=== PATIENT | female | born 1995 | race Caucasian/White ===

== ENCOUNTER 2016-11-18 12:45 | Emergency (ER) | payer OTHER ==
[~2016-11-18] VITALS: Ht 177.8 cm; Wt 91.0 kg
[2016-11-18 12:49] VITALS: Ht 177.8 cm; Wt 91.0 kg
[2016-11-18] MEDS ORDERED: BCPILLS PO (13:26)
--- NOTE | 2016-11-18 13:34 | DIAGNOSTIC IMAGING REPORT ---
CHEST ONE VIEW PORTABLE CLINICAL HISTORY: Atypical chest pain COMPARISON STUDY: No previous studies for comparison. FINDINGS: The cardiac and mediastinal contours are normal. There is no evidence of focal pulmonary consolidation. There is no evidence of failure. No pleural effusions are visualized.[ IMPRESSION: No active disease in the chest. Electronically signed by: Shaq Mahoney M.D. 11/18/2016 1:33 PM Dictated Date/Time: 11/18/2016 1:33 PM
[2016-11-18 14:05] VITALS: O2SAT 98
[2016-11-18 14:12] LABS: BASO % 0.5 %; BASO ABS # 0.03 K/uL (0-0.2); COMPLETE YES; EOS % 1.4 %; HEMATOCRIT 41.6 % (37-47); LYMPH % 28.1 %; LYMPH ABS # 1.65 K/uL (1.2-3.4); MEAN CELL VOLUME 85.4 fL (80-100); MEAN CORPUSCULAR HEMOGLOBIN 27.3 pg (25-34); MEAN PLATELET VOLUME 9.4 fL (7.4-10.4); PLATELET COUNT 311 K/uL (130-400); RED BLOOD COUNT 4.87 M/uL (4.2-5.4); WHITE BLOOD COUNT 5.88 K/uL (4.8-10.8)
[2016-11-18 14:30] LABS: ALT/SGPT 28 U/L (12-78); AST/SGOT 23 U/L (15-37); BLOOD UREA NITROGEN 11 mg/dl (7-18); CALCIUM 9.2 mg/dl (8.5-10.1); CARBON DIOXIDE 25 mmol/L (21-32); CHLORIDE 108 mmol/L (98-107); CREATININE 0.93 mg/dl (0.60-1.20); GLUCOSE 79 mg/dl (70-99); POTASSIUM 3.5 mmol/L (3.5-5.1); SODIUM 140 mmol/L (136-145)
[2016-11-18 14:35] LABS: ALKALINE PHOSPHATASE 66 U/L (45-117)
--- NOTE | 2016-11-18 14:35 | EMERGENCY ROOM VISIT NOTE ---
History First contact with patient: 13:15 Chief Complaint: CHEST PAIN Stated Complaint: CHEST PAIN, SENT BY [facility] Triage Summary: Pt had chest pain for a couple of days. It goes up into her shoulder and neck. She doesn't feel like a heartattack. Went to [facility]. EKG performed and sent to ER for more testing. History of Present Illness The patient is a 21 year old female who presents to the Emergency Room with complaints of left-sided chest pain that started last night. It is pleuritic interpreted she notes some radiation to the left shoulder and neck area. She was seen at the local urgent care and sent to the Emergency Room for further evaluation. The patient is currently taking oral contraceptives. The patient also notes a recent 8 hour plane ride. She denies any leg pain or swelling. She also has had a URI last week. She feels like that has cleared up. Her pain feels better sitting up. She denies any change with exercise although deep breathing makes it feel worse. She also feels some discomfort with palpation of the area. Prior to the onset of this she was doing some circuit training. Pt denies LOC, headache, fevers, chills, diaphoresis, visual changes , neck pain, breathing difficulties, nausea, vomiting, abdominal pain, back pain , melena, hematochezia, urinary symptoms, numbness, weakness, lymphadenopathy, rash, or other complaints. Review of Systems See HPI for pertinent positives and negatives. A total of ten systems were reviewed and were otherwise negative. Social History Smoking Status: Never Smoker Current/Historical Medications Scheduled Control Pills ( Control Pills), 1 TAB PO DAILY Physical Exam Vital Signs Date Time Temp Pulse Resp B/P (MAP) Pulse Ox O2 Delivery O2 Flow Rate FiO2 11/18/16 14:05 98 Room Air 11/18/16 14:04 98 Room Air 11/18/16 13:38 88 11/18/16 13:09 98 Room Air 11/18/16 12:49 36.9 72 20 139/92 100 Room Air Physical Exam GENERAL: Awake, alert, well-appearing, in no distress HENT: Normocephalic, atraumatic. Oropharynx unremarkable. EYES: Normal conjunctiva. Sclera non-icteric. NECK: Supple. No nuchal rigidity. FROM. No JVD. RESPIRATORY: Clear to auscultation. CARDIAC: Regular rate, normal rhythm. Extremities warm and well perfused. Pulses equal. ABDOMEN: Soft, non-distended. No tenderness to palpation. No rebound or guarding. No masses. RECTAL: Deferred. MUSCULOSKELETAL: Chest examination reveals left upper anterior tenderness. The back is symmetrical on inspection without obvious abnormality. There is no CVA tenderness to palpation. No joint edema. LOWER EXTREMITIES: Calves are equal size bilaterally and non-tender. No edema. No discoloration. NEURO: Normal sensorium. No sensory or motor deficits noted. SKIN: No rash or jaundice noted. Medical Decision & Procedures ER Provider Diagnostic Interpretation: Chest x-ray. Findings: A chest x-ray was performed and revealed no pneumothorax , effusion, infiltrate, pulmonary edema, free air under the diaphragm, or wide mediastinum. Laboratory Results 11/18/16 13:50 Red Blood Count 4.87, Mean Corpuscular Volume 85.4, Mean Corpuscular Hemoglobin 27.3, Mean Corpuscular Hemoglobin Concent 32.0, Mean Platelet Volume 9.4, Neutrophils (%) (Auto) 61.0, Lymphocytes (%) (Auto) 28.1, Monocytes (%) (Auto) 9.0, Eosinophils (%) (Auto) 1.4, Basophils (%) (Auto) 0.5, Neutrophils # (Auto) 3.59, Lymphocytes # (Auto) 1.65, Monocytes # (Auto) 0.53, Eosinophils # (Auto) 0.08, Basophils # (Auto) 0.03 11/18/16 13:50 Test 11/18/16 13:50 White Blood Count 5.88 K/uL (4.8-10.8) Red Blood Count 4.87 M/uL (4.2-5.4) Hemoglobin 13.3 g/dL (12.0-16.0) Hematocrit 41.6 % (37-47) Mean Corpuscular Volume 85.4 fL (80-100) Mean Corpuscular Hemoglobin 27.3 pg (25-34) Mean Corpuscular Hemoglobin Concent 32.0 g/dl (32-36) Platelet Count 311 K/uL (130-400) Mean Platelet Volume 9.4 fL (7.4-10.4) Neutrophils (%) (Auto) 61.0 % Lymphocytes (%) (Auto) 28.1 % Monocytes (%) (Auto) 9.0 % Eosinophils (%) (Auto) 1.4 % Basophils (%) (Auto) 0.5 % Neutrophils # (Auto) 3.59 K/uL (1.4-6.5) Lymphocytes # (Auto) 1.65 K/uL (1.2-3.4) Monocytes # (Auto) 0.53 K/uL (0.11-0.59) Eosinophils # (Auto) 0.08 K/uL (0-0.5) Basophils # (Auto) 0.03 K/uL (0-0.2) RDW Standard Deviation 49.2 fL (36.4-46.3) RDW Coefficient of Variation 15.9 % (11.5-14.5) Immature Granulocyte % (Auto) 0.0 % Immature Granulocyte # (Auto) 0.00 K/uL (0.00-0.02) Anion Gap 7.0 mmol/L (3-11) Est Creatinine Clear Calc Drug Dose 117.1 ml/min Estimated GFR () 101.8 Estimated GFR (Non- 87.9 BUN/Creatinine Ratio 12.0 (10-20) Calcium Level 9.2 mg/dl (8.5-10.1) Total Bilirubin 0.3 mg/dl (0.2-1) Direct Bilirubin 0.1 mg/dl (0-0.2) Aspartate Amino Transf (AST/SGOT) 23 U/L (15-37) Alanine Aminotransferase (ALT/SGPT) 28 U/L (12-78) Alkaline Phosphatase 66 U/L (45-117) Total Creatine Kinase 107 U/L (26-192) Creatine Kinase MB 1.1 ng/ml (0.5-3.6) Creatine Kinase MB Ratio 1.0 (0-3.0) Troponin I < 0.015 ng/ml (0-0.045) Total Protein 8.0 gm/dl (6.4-8.2) Albumin 4.0 gm/dl (3.4-5.0) Lipase 81 U/L (73-393) Human Chorionic Gonadotropin, Qual NEG (NEG) Medications Administered Medications (Trade) Dose Ordered Sig/Ashli Route Start Time Stop Time Status Last Admin Dose Admin Ibuprofen (Motrin Tab) 600 mg NOW STAT PO 11/18/16 14:54 11/18/16 14:55 DC 11/18/16 15:03 600 MG ECG Indication: chest pain Rate (beats per minute): 91 Rhythm: normal sinus Findings: no acute ischemic change, no ectopy, other (No pericarditis) Medical Decision Triage Nursing notes reviewed. The patient's presentation and history were concerning for chest pain. Etiologies such as pleurisy, costochondritis, pericarditis, cardiac ischemia, aortic dissection, pulmonary embolism, pneumonia, pneumothorax, musculoskeletal , infections, gastrointestinal, as well as others were entertained. The patient was evaluated. Clinically she was doing well. She did have some left upper chest wall tenderness. ECG was nonischemic. No pericarditis noted. Chest x-ray was performed and was negative. The patient's d-dimer was negative, 236. Her CBC, chemistry panel, LFTs, lipase and troponin were unremarkable. A single troponin was performed given her pain has been present for over 16 hours. Given the pleuritic nature and negative chest x-ray coupled with a negative d-dimer pneumonia and PE are unlikely however pleurisy is a possibility. Costochondritis is also possible she does have a tender chest wall. I discussed conservative management with her. She will use ibuprofen and warm compresses. She was given 600 mg of Motrin here. She will refrain from any heavy activity. She'll follow-up closely as an outpatient. If she worsens in any way she will be back. I gave my usual and customary discussion regarding this issue. By the evaluation outlined above other emergent etiologies such as those listed in the differential, as well as others, were deemed relatively unlikely. The patient was educated about the findings as listed above. All questions were answered and the patient was pleased with the treatment. Return instructions were outlined and the patient was discharged in stable condition. The patient was referred to [facility] for follow-up for a recheck of the current condition. Impression Primary Impression: Left sided chest pain Departure Information Dispostion Home / Self-Care Referrals No Doctor, Assigned (PCP) Patient Instructions My [facility] Additional Instructions CHEST PAIN INSTRUCTIONS: Ibuprofen(Motrin, Advil) may be used for fever or pain. Use 600mg every six hours as needed. Take with food. Avoid using more than 2400mg in a 24 hour period. Do not use 2400mg per day for more than three consecutive days without physician direction. Prolonged inappropriate use can lead to stomach upset or ulcers. (AND/OR) Acetaminophen(Tylenol) may be used for fever or pain. Use 1000mg every six hours as needed. Avoid using more than 4000mg in a 24 hour period. Rest and drink plenty of fluids as tolerated. Continue current medications. Avoid strenuous activities and anything that worsens your pain. Resume normal activities once your symptoms resolve. Return to the ER immediately for worsening or persistent chest pain, abdominal pain, vomiting, fevers, chest pains, difficulty breathing, worsening of your condition, or as needed. Follow up with [facility] in 2-3 days for a recheck of your current condition.
[2016-11-18 14:42] LABS: PREG INTERNAL NEGATIVE QC NEG CLEAR BACKGROUND; PREG INTERNAL POSITIVE QC POS CONTROL LINE
[2016-11-18] MEDS ORDERED: IBUPROFEN 600 MG TAB PO STA (14:54)
[2016-11-18 15:21] VITALS: TEMP 36.9
[2016-11-18 15:22] VITALS: BP 128/87; PULSE 70; O2SAT 100
== END 2016-11-18 15:23 | disposition home or self-care (01) ==
LOC: C.EDB 12:47
DX: R07.9 Chest pain, unspecified (principal); Z79.3 Long term (current) use of hormonal contraceptives

== ENCOUNTER 2017-05-07 16:20 | Emergency (ER) | payer OTHER ==
[~2017-05-07] VITALS: Ht 175.3 cm; Wt 88.4 kg
[~2017-05-07 16:20] MED LIST: BCPILLS PO
[2017-05-07 16:23] VITALS: Ht 175.3 cm; Wt 88.4 kg
[2017-05-07] MEDS ORDERED: CEFTRIAXONE SOD INJ 1 GM ADDVIAL IV STA (16:50)
[2017-05-07] MEDS ORDERED: ONDANSETRON INJ 2 MG/ML 2 ML VIAL IV STA (16:50)
[2017-05-07] MEDS ORDERED: ACETAMINOPHEN 500 MG TAB PO STA (16:50)
[2017-05-07] MEDS ORDERED: SODIUM CHLORIDE 0.9% 1000ML 1,000 ML IV STA (16:50)
[2017-05-07] MEDS ORDERED: KETOROLAC TROMETHAMINE 30 MG/ML VIAL IV STA (16:50)
--- NOTE | 2017-05-07 16:58 | EMERGENCY ROOM VISIT NOTE ---
History Report prepared by Denia: Mary Delcid Under the Supervision of: Dr. Reese Hope M.D. First contact with patient: 16:28 Chief Complaint: FEVER Stated Complaint: SHAKES,HIGH FEVER,ABD PAIN History of Present Illness The patient is a 21 year old female who presents to the Emergency Room with complaints of worsening generalized illness beginning on Tuesday, five days ago. The patient reports fever, chills, cough, congestion, headache, abdominal pain, chest pain with a deep breath, shortness of breath, and flank pain. She notes her highest temperature was 104 degrees Fahrenheit. She notes one episode of vomiting occurring yesterday. The patient reports she started to have UTI symptoms of odorous urine and pain with urination two weeks ago. She states she did not see anyone for her UTI symptoms. The patient went to [facility] this past week and had UTI symptoms the entire time she was there. She also reports she had her other generalized illness symptoms while she was in the [facility]. The patient got back from the [facility] last night. The patient went to [facility] this morning and tested positive for a UTI. [facility] referred the patient to the ED for a possible kidney infection. She was given one dose of Rocephin IM while at [facility]. The patient took Tylenol at 10am and ibuprofen at 12pm today. The patient has a history of UTIs. Source of History: patient Onset: 5 days ago Position: other (generalized) Quality: other (illness) Timing: worsening Associated Symptoms: + fevers, + chills, + cough, + chest pain, + SOB, + vomiting, + abdominal pain, + back pain, + urinary symptoms Review of Systems See HPI for pertinent positives & negatives. A total of 10 systems reviewed and were otherwise negative. Past Medical & Surgical Medical Problems: (1) STI (sexually transmitted infection) (2) UTI (urinary tract infection) Family History Patient reports no known family medical history. Social History Smoking Status: Never Smoker Marital Status: single Housing Status: lives with roommate Occupation Status: [employer] student Current/Historical Medications Scheduled Biotin (Biotin), 1 CAP PO DAILY Cefdinir (Omnicef), 300 MG PO Q12H Etonogestrel (Nexplanon), 68 MG INTRAD UD Multivitamin (Multivitamin), 1 TAB PO DAILY Scheduled PRN Acetaminophen (Tylenol), 1,000 MG PO Q6H PRN for Pain or Fever Ibuprofen (Advil), 400-600 MG PO Q6H PRN for Pain or Fever Allergies Coded Allergies: No Known Allergies (Unverified , 11/18/16) Physical Exam Vital Signs Date Time Temp Pulse Resp B/P (MAP) Pulse Ox O2 Delivery O2 Flow Rate FiO2 05/07/17 19:01 107 22 105/60 98 Room Air 05/07/17 18:28 106 20 105/60 98 Room Air 05/07/17 17:07 129 05/07/17 16:23 38.7 143 24 129/80 96 Room Air Physical Exam GENERAL: Patient is in no acute distress. HEENT: Face flushing noted. No acute trauma, normocephalic atraumatic, mucous membranes moist, no nasal congestion, no scleral icterus. NECK: No stridor, no adenopathy, no meningismus, trachea is midline. LUNGS: Clear to auscultation bilaterally, no wheeze, no rhonchi, breath sounds equal. HEART: Tachycardic, regular rhythm, no murmurs. ABDOMEN: Tender to left upper quadrant. Soft, bowel sounds positive, no hernias , no peritonitis. BACK: No flank discomfort on percussion EXTREMITIES: No cyanosis or edema, full range of motion of all the joints without pain or difficulty, no signs for acute trauma. NEUROLOGIC: Oriented x 3, no acute motor or sensory deficits, no focal weakness. SKIN: No rash, no jaundice, no diaphoresis. Medical Decision & Procedures ER Provider Diagnostic Interpretation: Radiology results as stated below per my review and radiologist interpretation: CHEST ONE VIEW PORTABLE FINDINGS: Cardiomediastinal and hilar silhouettes are within normal limits. No pneumothorax, pleural effusion, focal airspace consolidation or overt pulmonary edema. The bones of the chest appear grossly intact. IMPRESSION: No acute process. The above report was generated using voice recognition software. It may contain grammatical, syntax or spelling errors. Electronically signed by: Damian Lr M.D. (RENAL)RETROPERITON COMP FINDINGS: The right kidney measures 12.2 x 4.3 x 4.6 cm and is unremarkable without renal calculi, hydronephrosis or focal renal mass lesions. The left kidney measures 12.0 x 5.8 x 5.2 cm and is also unremarkable without renal calculi, hydronephrosis or focal renal mass lesions. Urinary bladder is unremarkable. The left ureteral jet is not visualized. The right ureteral jet is noted. IMPRESSION: Unremarkable sonographic appearance of the kidneys and urinary bladder. No renal calculi or hydronephrosis. The above report was generated using voice recognition software. It may contain grammatical, syntax or spelling errors. Electronically signed by: Damian Lr M.D. Laboratory Results 05/07/17 16:53 Red Blood Count 4.40, Mean Corpuscular Volume 83.9, Mean Corpuscular Hemoglobin 28.2, Mean Corpuscular Hemoglobin Concent 33.6, Mean Platelet Volume 9.2, Neutrophils (%) (Auto) 83.9, Lymphocytes (%) (Auto) 8.1, Monocytes (%) (Auto) 7.5, Eosinophils (%) (Auto) 0.1, Basophils (%) (Auto) 0.1, Neutrophils # (Auto) 10.93, Lymphocytes # (Auto) 1.05, Monocytes # (Auto) 0.98, Eosinophils # (Auto) 0.01, Basophils # (Auto) 0.01 05/07/17 16:53 Test 05/07/17 16:53 05/07/17 17:03 05/07/17 17:06 05/07/17 17:12 White Blood Count 13.02 K/uL (4.8-10.8) Red Blood Count 4.40 M/uL (4.2-5.4) Hemoglobin 12.4 g/dL (12.0-16.0) Hematocrit 36.9 % (37-47) Mean Corpuscular Volume 83.9 fL (80-100) Mean Corpuscular Hemoglobin 28.2 pg (25-34) Mean Corpuscular Hemoglobin Concent 33.6 g/dl (32-36) Platelet Count 249 K/uL (130-400) Mean Platelet Volume 9.2 fL (7.4-10.4) Neutrophils (%) (Auto) 83.9 % Lymphocytes (%) (Auto) 8.1 % Monocytes (%) (Auto) 7.5 % Eosinophils (%) (Auto) 0.1 % Basophils (%) (Auto) 0.1 % Neutrophils # (Auto) 10.93 K/uL (1.4-6.5) Lymphocytes # (Auto) 1.05 K/uL (1.2-3.4) Monocytes # (Auto) 0.98 K/uL (0.11-0.59) Eosinophils # (Auto) 0.01 K/uL (0-0.5) Basophils # (Auto) 0.01 K/uL (0-0.2) RDW Standard Deviation 48.1 fL (36.4-46.3) RDW Coefficient of Variation 15.6 % (11.5-14.5) Immature Granulocyte % (Auto) 0.3 % Immature Granulocyte # (Auto) 0.04 K/uL (0.00-0.02) Anion Gap 8.0 mmol/L (3-11) Est Creatinine Clear Calc Drug Dose 99.5 ml/min Estimated GFR () 86.9 Estimated GFR (Non- 75.0 BUN/Creatinine Ratio 8.8 (10-20) Calcium Level 8.6 mg/dl (8.5-10.1) Total Bilirubin 0.3 mg/dl (0.2-1) Aspartate Amino Transf (AST/SGOT) 17 U/L (15-37) Alanine Aminotransferase (ALT/SGPT) 24 U/L (12-78) Alkaline Phosphatase 93 U/L (45-117) Total Protein 7.9 gm/dl (6.4-8.2) Albumin 3.0 gm/dl (3.4-5.0) Globulin 4.9 gm/dl (2.5-4.0) Albumin/Globulin Ratio 0.6 (0.9-2) Urine Color YELLOW Urine Appearance CLEAR (CLEAR) Urine pH 7.5 (4.5-7.5) Urine Specific [place] 1.013 (1.000-1.030) Urine Protein 2+ (NEG) Urine Glucose (UA) NEG (NEG) Urine Ketones NEG (NEG) Urine Occult Blood TRACE (NEG) Urine Nitrite NEG (NEG) Urine Bilirubin NEG (NEG) Urine Urobilinogen NEG (NEG) Urine Leukocyte Esterase TRACE (NEG) Urine WBC (Auto) 10-30 /hpf (0-5) Urine RBC (Auto) 5-10 /hpf (0-4) Urine Hyaline Casts (Auto) 1-5 /lpf (0-5) Urine Epithelial Cells (Auto) >30 /lpf (0-5) Urine Bacteria (Auto) NEG (NEG) Urine Renal Epithelial Cells 0-5 /lpf (0-5) Influenza Type A Antigen Neg for Influ A (NEG) Influenza Type B Antigen Neg for Influ B (NEG) Lactic Acid Level 1.3 mmol/L (0.4-2.0) Laboratory results reviewed by me. Medications Administered Medications (Trade) Dose Ordered Sig/Ashli Route Start Time Stop Time Status Last Admin Dose Admin Ondansetron HCl (Zofran Inj) 4 mg NOW STAT IV 05/07/17 16:50 05/07/17 16:53 DC 05/07/17 17:40 4 MG Ketorolac Tromethamine (Toradol Inj) 30 mg NOW STAT IV 05/07/17 16:50 05/07/17 16:53 DC 05/07/17 17:40 30 MG Acetaminophen (Tylenol Tab) 1,000 mg NOW STAT PO 05/07/17 16:50 05/07/17 16:53 DC 05/07/17 17:40 1,000 MG Ceftriaxone Sodium (Rocephin Inj) 1 gm NOW STAT IV 05/07/17 16:50 05/07/17 16:53 DC 05/07/17 16:50 1 GM Sodium Chloride 1,000 ml @ 999 mls/hr Q1H1M STAT IV 05/07/17 16:50 05/07/17 17:50 DC 05/07/17 17:40 999 MLS/HR ED Course 1650: Ordered Sodium Chloride 1000 ml @ 999 mls/hr IV, Rocephin Inj 1 gm IV, Tylenol Tab 1000 mg PO, Toradol Inj 30 mg IV, Zofran Inj 4 mg IV. 1701: The patient was evaluated in room B8. A complete history and physical exam was performed. 1855: On reassessment, the patient is resting comfortably. I updated her on her test results. She is comfortable going home. 185: Ordered Cefdinir 300 mg PO. 1906: Reevaluated the patient. Discussed results and discharge instructions: She verbalized understanding and agreement. The patient is ready for discharge. Medical Decision Differential diagnoses: Pyelonephritis, dehydration, , pneumonia, renal failure, sepsis, UTI, influenza. There is a mild leukocytosis, this is consistent with infection. No worrisome anemia. No significant electrolyte abnormality, kidney failure or hepatitis. Lactic acid level is not elevated making severe sepsis less likely. Urinalysis is suggestive of infection, urine culture and blood cultures are pending. Renal ultrasound does not show any hydronephrosis or evidence for urinary obstruction. Chest film does not show pneumonia or CHF, there was no free air. Influenza testing was negative. The patient received IV saline, IV Toradol, IV Zofran and oral Tylenol. She was given IV ceftriaxone. The patient's heart rate has improved, she feels better. She is not hypoxic or toxic. The patient has had urinary symptoms for a few weeks and now has left flank pain. I suspect she has pyelonephritis. She is being discharged on Omnicef twice a day for 10 days, fluids, rest, fever control were suggested. If she feels worse or is not improving, she needs to return for reassessment. Medication Reconcilliation Current Medication List: was personally reviewed by me Blood Pressure Screening Patient's blood pressure: Normal blood pressure Impression Primary Impression: Pyelonephritis Additional Impressions: Left flank pain Fever Scribe Attestation The scribe's documentation has been prepared under my direction and personally reviewed by me in its entirety. I confirm that the note above accurately reflects all work, treatment, procedures, and medical decision making performed by me. Departure Information Dispostion Home / Self-Care Prescriptions Cefdinir (OMNICEF) 300 Mg Cap 300 MG PO Q12H for 10 Days, #20 CAP Prov: Reese Hope M.D. 05/07/17 Referrals No Doctor, Assigned (PCP) Forms HOME CARE DOCUMENTATION FORM, IMPORTANT VISIT INFORMATION Patient Instructions My [facility] Additional Instructions fluids rest motrin and or tylenol for fever and pain omnicef 2x per day for 10 days follow with [facility] tuesday or tuesday for a recheck return for worsening symptoms or if not improving as we discussed Problem Qualifiers
[2017-05-07 17:15] LABS: BASO % 0.1 %; BASO ABS # 0.01 K/uL (0-0.2); EOS % 0.1 %; EOS ABS # 0.01 K/uL (0-0.5); HEMATOCRIT 36.9 % (37-47); HEMOGLOBIN 12.4 g/dL (12.0-16.0); IG# 0.04 K/uL (0.00-0.02); LYMPH % 8.1 %; LYMPH ABS # 1.05 K/uL (1.2-3.4); MEAN CELL VOLUME 83.9 fL (80-100); MEAN CORPUSCULAR HEMOGLOBIN 28.2 pg (25-34); MEAN CORPUSCULAR HGB CONC 33.6 g/dl (32-36); MEAN PLATELET VOLUME 9.2 fL (7.4-10.4); MONO % 7.5 %; MONO ABS # 0.98 K/uL (0.11-0.59); NEUT % 83.9 %; NEUT ABS # 10.93 K/uL (1.4-6.5); PLATELET COUNT 249 K/uL (130-400); RED CELL DISTRIBUTION WIDTH CV 15.6 % (11.5-14.5); RED CELL DISTRIBUTION WIDTH SD 48.1 fL (36.4-46.3); WHITE BLOOD COUNT 13.02 K/uL (4.8-10.8)
[2017-05-07 17:34] LABS: CALCIUM 8.6 mg/dl (8.5-10.1); CREATININE 1.06 mg/dl (0.60-1.20); POTASSIUM 3.2 mmol/L (3.5-5.1)
[2017-05-07 17:37] LABS: TOTAL PROTEIN 7.9 gm/dl (6.4-8.2)
[2017-05-07] MEDS ORDERED: IBUP-1050 PO (17:44)
[2017-05-07] MEDS ORDERED: ETON1IMP2 INTRAD (17:44)
[2017-05-07] MEDS ORDERED: BIOT1CAP3 PO (17:44)
[2017-05-07] MEDS ORDERED: MULT-506 PO (17:44)
[2017-05-07] MEDS ORDERED: ACET-1256 PO (17:44)
--- NOTE | 2017-05-07 17:52 | DIAGNOSTIC IMAGING REPORT ---
CHEST ONE VIEW PORTABLE HISTORY: 21 years-old Female sob, fever, cough acute shortness of breath with fever and cough COMPARISON: Chest radiograph 11/18/2016 TECHNIQUE: Portable AP view of the chest FINDINGS: Cardiomediastinal and hilar silhouettes are within normal limits. No pneumothorax, pleural effusion, focal airspace consolidation or overt pulmonary edema. The bones of the chest appear grossly intact. IMPRESSION: No acute process. The above report was generated using voice recognition software. It may contain grammatical, syntax or spelling errors. Electronically signed by: Damian Lr M.D. 05/07/2017 5:50 PM Dictated Date/Time: 05/07/2017 5:50 PM
[2017-05-07 17:54] LABS: INFLUENZA B ANTIGEN Neg for Influ B (NEG)
--- NOTE | 2017-05-07 18:13 | DIAGNOSTIC IMAGING REPORT ---
(RENAL)RETROPERITON COMP HISTORY: 21 years-old Female left flank pain, fever acute left-sided flank pain with fever COMPARISON: None available TECHNIQUE: Multiple real-time sonographic images of the kidneys and urinary bladder were obtained assessing grayscale appearance and color flow FINDINGS: The right kidney measures 12.2 x 4.3 x 4.6 cm and is unremarkable without renal calculi, hydronephrosis or focal renal mass lesions. The left kidney measures 12.0 x 5.8 x 5.2 cm and is also unremarkable without renal calculi, hydronephrosis or focal renal mass lesions. Urinary bladder is unremarkable. The left ureteral jet is not visualized. The right ureteral jet is noted. IMPRESSION: Unremarkable sonographic appearance of the kidneys and urinary bladder. No renal calculi or hydronephrosis. The above report was generated using voice recognition software. It may contain grammatical, syntax or spelling errors. Electronically signed by: Damina Lr M.D. 05/07/2017 6:12 PM Dictated Date/Time: 05/07/2017 6:10 PM
[2017-05-07] MEDS ORDERED: CEFDINIR 300 MG CAP PO STA (18:59)
[2017-05-07] MEDS ORDERED: CEFD300C2 PO (19:03)
[2017-05-07 19:43] VITALS: BP 105/60; PULSE 107; TEMP 38.7; O2SAT 98
== END 2017-05-07 19:44 | disposition home or self-care (01) ==
LOC: C.EDB 16:21
DX: N12 Tubulo-interstitial nephritis, not specified as acute or chronic (principal); R05 Cough; R07.9 Chest pain, unspecified; R06.02 Shortness of breath